=== PATIENT | male | born 1980 | race Two or more races ===

== ENCOUNTER 2025-02-11 23:54 | Emergency (ER) | payer SELFPAY ==
[~2025-02-11] VITALS: Ht 172.7 cm; Wt 100.8 kg
[2025-02-12] VITALS: BP 172/108; PULSE 96; RESP 16; TEMP 98.5; O2SAT 98
== END 2025-02-12 09:33 | disposition left against medical advice (07) ==
LOC: ER 23:54
DX: T78.40XA Allergy, unspecified, initial encounter (principal); Z53.21 Procedure and treatment not carried out due to patient leaving prior to being seen by health care provider; X58.XXXA Exposure to other specified factors, initial encounter